=== PATIENT | male | born 1960 | race Caucasian/White ===

== ENCOUNTER 2019-12-19 12:57 | Emergency (ER) | payer OTHER ==
[2019-12-19] MEDS ORDERED: ACET/COD 300 MG/30 MG STARTER PACK 6 TAB BTL PO STA (13:19)
[2019-12-19] MEDS ORDERED: valACYclovir HCL 1,000 MG TABLET PO STA (13:20)
--- NOTE | 2019-12-19 13:29 | ED ---
General Adult HPI - General Chief complaint: Recheck/Abnormal Lab/Rx Stated complaint: Fall, rash Time Seen by Provider: 12/19/19 13:11 Source: patient, RN notes reviewed, old records reviewed Mode of arrival: wheelchair Limitations: no limitations - History of Present Illness Initial comments: Patient is a 59-year-old male history of smoking who presents emergency department today with left rib pain. He reports that he fell going down steps approximately 2 weeks ago and landed on his left ribs. He's been wearing a back brace and believes he fractured his ribs. He reports that sometimes worse with taking a deep breath. Patient states that he also has noticed over the past 3 days a painful red Nichole-like rash over the left arm extending to the fifth through third digit. Patient reports that he's had no exposure to poison oak or IV or been out of the [place]. He reports that the rash is burning sensation. - Related Data Home Medications Medication Instructions Recorded Confirmed Clopidogrel [Plavix] 75 mg PO HS 01/27/15 12/19/19 Simvastatin [Zocor] 40 mg PO HS 12/03/15 12/19/19 hydrOXYzine pamoate [Vistaril] 100 mg PO HS 12/03/15 12/19/19 Albuterol Sulfate [Albuterol 2 puff INHALATION RT-Q6H PRN 12/19/19 12/19/19 Sulfate Hfa] Beclomethasone Dip 80 Mcg/Puff 2 puff INHALATION RT-BID 12/19/19 12/19/19 [Qvar 80 mcg] Ergocalciferol [Vitamin D2] 50,000 unit PO FR 12/19/19 12/19/19 Meloxicam 15 mg PO HS 12/19/19 12/19/19 Salmeterol Xinafoate [Serevent 1 puff INHALATION RT-BID 12/19/19 12/19/19 Diskus] lisinopriL 40 mg PO HS 12/19/19 12/19/19 Previous Rx's Medication Instructions Recorded Acetaminophen-Codeine 300-30mg 1 tab PO Q6H PRN 3 Days #12 tablet 12/19/19 [Tylenol w/codeine #3] valACYclovir HCL [Valtrex] 1,000 mg PO Q8HR #21 tab 12/19/19 Allergies Allergy/AdvReac Type Severity Reaction Status Date / Time No Known Allergies Allergy Verified 12/19/19 14:12 Review of Systems ROS Statement: Those systems with pertinent positive or pertinent negative responses have been documented in the HPI. ROS Other: All systems not noted in ROS Statement are negative. Past Medical History Past Medical History: CVA/TIA, Hyperlipidemia, Hypertension Additional Past Medical History / Comment(s): diverticulitis History of Any Multi-Drug Resistant Organisms: None Reported Past Surgical History: No Surgical Hx Reported Additional Past Surgical History / Comment(s): rectal abcess removed Past Psychological History: No Psychological Hx Reported Smoking Status: Current every day smoker Past Alcohol Use History: Daily Past Drug Use History: None Reported General Exam - General Exam Comments Initial Comments: Alert and oriented 59-year-old male. No acute distress. Limitations: no limitations General appearance: alert, in no apparent distress Head exam: Present: atraumatic, normocephalic, normal inspection Eye exam: Present: normal appearance, PERRL, EOMI. Absent: scleral icterus, conjunctival injection, periorbital swelling ENT exam: Present: normal exam, mucous membranes moist Neck exam: Present: normal inspection. Absent: tenderness, meningismus, lymph adenopathy Respiratory exam: Present: normal lung sounds bilaterally, other (Symptoms from the left ribs). Absent: respiratory distress, wheezes, rales, rhonchi, stridor Cardiovascular Exam: Present: regular rate, normal rhythm, normal heart sounds. Absent: systolic murmur, diastolic murmur, rubs, gallop, clicks GI/Abdominal exam: Present: soft, normal bowel sounds. Absent: distended, tenderness, guarding, rebound, rigid Extremities exam: Present: normal inspection, full ROM, normal capillary refill, other (Has blister like erythematous lesion over the medial nerve description of the left arm.). Absent: tenderness, pedal edema, joint swelling, calf tenderness Back exam: Present: normal inspection Neurological exam: Present: alert, oriented X3, CN II-XII intact Course Vital Signs 12/19/19 12/19/19 13:01 14:54 Temperature 98.1 F 97.2 F L Pulse Rate 108 H 99 Respiratory 18 20 Rate Blood Pressure 127/86 122/76 O2 Sat by Pulse 98 98 Oximetry Medical Decision Making - Medical Decision Making Asians 59-year-old male presents with a fall 2 weeks ago on his left ribs. He also complains for 3 days ago developed a painful rash over his left arm. Patient's rash consistent with shingles over her median nerve dystrophy Patient. We'll start the Patient on Valtrex. Patient refused rib x-ray was reviewed and negative for acute fractures. Discussed likely occult fracture. We'll put the Patient on a temperature medication and Valtrex. - Radiology Data Radiology results: report reviewed No evidence of displaced rib fracture. No acute Christiano primary process. Disposition Clinical Impression: Shingles, Rib contusion Disposition: HOME SELF-CARE Condition: Good Instructions (If sedation given, give patient instructions): Shingles (ED) Additional Instructions: Patient advised to follow-up with your primary care physician. Take the medications as prescribed. Patient should practice taking deep breathing techniques to avoid developing pneumonia. Return to emergency department if any alarming signs or symptoms occur Prescriptions: Acetaminophen-Codeine 300-30mg [Tylenol w/codeine #3] 1 tab PO Q6H PRN 3 Days #12 tablet PRN Reason: Pain valACYclovir HCL [Valtrex] 1,000 mg PO Q8HR #21 tab Is patient prescribed a controlled substance at d/c from ED?: No Referrals: Can Rose DO [Primary Care Provider] - 1-2 days Time of Disposition: 14:33
--- NOTE | 2019-12-19 14:13 | XR ---
EXAMINATION TYPE: XR ribs LT w pa chest xray DATE OF EXAM: 12/19/2019 CLINICAL HISTORY: fall . Left mid anterior rib pain after fall. TECHNIQUE: Frontal view of the chest and dedicated views of the left ribs were obtained COMPARISON: 01/31/2015 chest radiograph FINDINGS: The cardiomediastinal silhouette is within normal limits for size. Pulmonary vasculature i s normal. There is no focal air space opacity, pleural effusion, or pneumothorax seen. No evidence of displaced rib fracture. IMPRESSION: No evidence of displaced rib fracture. No acute cardiopulmonary process.
[2019-12-19 14:56] VITALS: BP 122/76; PULSE 99; RESP 20; TEMP 97.2
== END 2019-12-19 14:55 | disposition home or self-care (01) ==
LOC: EC 12:57
DX: S10.0XXA Contusion of throat, initial encounter (principal); B02.9 Zoster without complications; I10 Essential (primary) hypertension; E78.5 Hyperlipidemia, unspecified; F17.200 Nicotine dependence, unspecified, uncomplicated; Z79.02 Long term (current) use of antithrombotics/antiplatelets; Z79.899 Other long term (current) drug therapy; Z79.1 Long term (current) use of non-steroidal anti-inflammatories (NSAID); Z79.51 Long term (current) use of inhaled steroids; Z86.73 Personal history of transient ischemic attack (TIA), and cerebral infarction without residual deficits; W10.9XXA Fall (on) (from) unspecified stairs and steps, initial encounter
CPT/HCPCS: 99284

== ENCOUNTER → 2021-05-08 | Outpatient (CLI) | payer OTHER ==
--- NOTE | 2021-05-09 11:03 | CTL ---
EXAMINATION TYPE: CT Low Dose Lung DATE OF EXAM ORDERED: 05/08/2021 HISTORY: Long-term tobacco use. Lung cancer screening CT DLP: 139.[address] CTDI: 3.3 mGy Automated exposure control for dose reduction was used. SCREENING VISIT: Baseline COMPARISON: None TECHNIQUE: Low dose computed tomography scan was performed through the chest at 1 mm thick sections a nd reconstructed images in multiple planes at 1 mm and [address] DIAGNOSTIC QUALITY: Satisfactory FINDINGS: LUNG NODULES: None. LUNGS: COPD: Severity: Mild Fibrosis: Severity: Mild scattered Lymph nodes: None Other findings: None RIGHT PLEURAL SPACE: Effusion: None Calcification: None Thickening: None Pneumothorax: None LEFT PLEURAL SPACE: Effusion: None Calcification: None Thickening: None Pneumothorax: None HEART: Heart Size: Normal Coronary Calcification: Moderate to severe in the LAD and RCA distribution Pericardial Effusion: None OTHER FINDINGS: Upper abdomen: None Bony thorax: None Supraclavicular region: None Other: Bilateral subareolar gynecomastia. Ectatic ascending aorta up to 3.8 cm in diameter axial imag e 33. IMPRESSION: Mild emphysematous change without suspicious nodules. CT LUNG RAD AND CT CHEST RECOMMENDATION: Lung-Rad 1 Negative: Continue annual screening with LDCT in 12 months. S Modifier (other clinically significant findings): S Moderate to severe coronary artery calcification should be correlated with additional cardiac risk fa ctors. Ectatic ascending aorta.
== END | disposition home or self-care (01) ==
LOC: RADCTMAIN 17:33
PROVIDERS: ATTEND Family Medicine
DX: Z12.2 Encounter for screening for malignant neoplasm of respiratory organs (principal); J43.9 Emphysema, unspecified; R63.4 Abnormal weight loss; R10.10 Upper abdominal pain, unspecified; E83.118 Other hemochromatosis
CPT/HCPCS: 71271

== ENCOUNTER → 2021-05-08 | Outpatient (CLI) | payer OTHER | END | disposition home or self-care (01) | LOC: RADCTMAIN 17:43 | PROVIDERS: ATTEND Family Medicine | DX: Z53.9 Procedure and treatment not carried out, unspecified reason (principal) ==

== ENCOUNTER → 2021-05-12 | Outpatient (CLI) | payer OTHER ==
--- NOTE | 2021-05-12 12:52 | US ---
EXAMINATION TYPE: US abdomen limited DATE OF EXAM: 05/12/2021 COMPARISON: Ultrasound abdomen limited December 25, 2015 CLINICAL HISTORY: R10.10 UPPER ABDOMINAL PAIN, UNSPECIFIED. Right lateral abdomen pain beneath skin s urface and feels like Herpes Zoster ("shingles"). EXAM MEASUREMENTS: Liver Length: 14.1 cm Gallbladder Wall: 0.2 cm CBD: 0.3 cm Right Kidney: 10.8 x 5.9 x 4.2 cm Pancreas: hyperechoic Liver: no masses are seen today and small left lobe is noted Gallbladder: wnl Evidence for sonographic Dash's sign: no CBD: wnl Right Kidney: No hydronephrosis or masses seen Visualized pancreas slightly heterogeneous in appearance without worrisome mass or ductal dilatation. Visualized liver is heterogeneously hyperechoic. Evaluation for focal masses suboptimal due to the h eterogeneity. Finding likely on basis of diffuse fatty infiltration. No biliary dilatation. Gallbladd er shows no intraluminal gallstones. No right-sided hydronephrosis. IMPRESSION: No shadowing mobile gallstones or ultrasound evidence for acute cholecystitis.
== END | disposition home or self-care (01) ==
LOC: RADUSWWP 10:51
PROVIDERS: ATTEND Family Medicine
DX: R10.10 Upper abdominal pain, unspecified (principal)
CPT/HCPCS: 76705

== ENCOUNTER 2021-09-26 17:05 | Emergency (ER) | payer OTHER ==
[2021-09-26] MEDS ORDERED: DIPH,PERTUS(ACELL)TETVAC-LF 0.5 ML VIAL IM ONE (17:08)
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
[2021-09-26 17:31] LABS: Basophils # (A) 0.1 k/uL (0-0.2); Basophils % (A) 1 %; Eosinophils % (A) 9 %; HCT 40.6 % (39.0-53.0); HGB 13.2 gm/dL (13.0-17.5); Lymphocytes # (A) 3.3 k/uL (1.0-4.8); Lymphocytes % (A) 29 %; MCH 31.2 pg (25.0-35.0); MCHC 32.6 g/dL (31.0-37.0); MCV 95.6 fL (80.0-100.0); Mean Platelet Volume 7.3; Monocytes # (A) 0.5 k/uL (0-1.0); Monocytes % (A) 5 %; Neutrophils # (A) 6.2 k/uL (1.3-7.7); Neutrophils % (A) 55 %; Platelet Count 261 k/uL (150-450); RBC 4.25 m/uL (4.30-5.90); RDW 13.3 % (11.5-15.5); WBC 11.4 k/uL (3.8-10.6)
[2021-09-26 17:35] VITALS: TEMP 97.4
[2021-09-26 17:46] LABS: ALT 33 U/L (4-49); AST 39 U/L (17-59); African American GFR (CKD) >90 (>60 ml/min/1.73 sqM); Albumin 4.6 g/dL (3.5-5.0); Alkaline Phosphatase 74 U/L (38-126); Anion Gap 11 mmol/L; Blood Urea Nitrogen 14 mg/dL (9-20); Calcium 9.6 mg/dL (8.4-10.2); Carbon Dioxide 21 mmol/L (22-30); Chloride 103 mmol/L (98-107); Glucose 114 mg/dL (74-99); Non-African American GFR(CKD) 89 (>60 ml/min/1.73 sqM); Potassium 4.3 mmol/L (3.5-5.1); Sodium 135 mmol/L (137-145); Total Bilirubin 0.3 mg/dL (0.2-1.3); Total Protein 7.1 g/dL (6.3-8.2)
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
[2021-09-26 17:53] LABS: INR 0.9 (<1.2); Partial Thromboplastin Time 21.8 sec (22.0-30.0); Prothrombin Time 9.8 sec (9.0-12.0)
[2021-09-26 18:02] LABS: Alcohol 295 mg/dL
[2021-09-26] MEDS ORDERED: AMPICILLIN-SULBACTAM 3 GM in SODIUM CHLORIDE 0.9% 100 ML IVPB STA (18:13)
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
[2021-09-26 19:23] VITALS: BP 147/86; PULSE 97; RESP 16
[2021-09-26 20:13] LABS: Appearance,Urine Clear (Clear); Bilirubin,Urine Negative (Negative); Blood,Urine Negative (Negative); Color,Urine Light Yellow; Glucose,Urine (UA) Negative (Negative); Ketones,Urine Negative (Negative); Leukocyte Esterase,Urine Negative (Negative); Nitrite,Urine Negative (Negative); Protein,Urine Negative (Negative); Specific Gravity,Urine 1.016 (1.001-1.035); Urobilinogen,Urine <2.0 mg/dL (<2.0)
[2021-09-26 20:31] LABS: Amphetamine Screen,Urine Not Detected (NotDetected); Barbiturate Screen,Urine Not Detected (NotDetected); Benzodiazepines Screen,Urine Not Detected (NotDetected); Cocaine Screen,Urine Not Detected (NotDetected); Methadone Screen, Urine Not Detected (NotDetected); Opiate Screen,Urine Not Detected (NotDetected); Oxycodone Screen, Urine Not Detected (NotDetected); Phencyclidine Screen,Urine Not Detected (NotDetected); Tricyclic Antidepressant,Urine Not Detected (NotDetected); Urn Cannabinoid Scrn Not Detected (NotDetected)
== END 2021-09-26 19:00 | disposition other institution (70) ==
LOC: EC 17:05
DX: S12.300A Unspecified displaced fracture of fourth cervical vertebra, initial encounter for closed fracture (principal); S02.401A Maxillary fracture, unspecified side, initial encounter for closed fracture; F10.129 Alcohol abuse with intoxication, unspecified; S02.402A Zygomatic fracture, unspecified side, initial encounter for closed fracture; S02.609A Fracture of mandible, unspecified, initial encounter for closed fracture; V89.2XXA Person injured in unspecified motor-vehicle accident, traffic, initial encounter; Z86.73 Personal history of transient ischemic attack (TIA), and cerebral infarction without residual deficits; E78.5 Hyperlipidemia, unspecified; I10 Essential (primary) hypertension; F17.200 Nicotine dependence, unspecified, uncomplicated; Z79.899 Other long term (current) drug therapy
CPT/HCPCS: 36415; 86900; 86901; 80053; 84484; 85025; 85610; 85730; 86850; 81003; 80306; 80320; 72170; 71045; 72125; 70486; 70450; 71260; 74177; 90715; 99285; 90471; Q9967